=== PATIENT | male | born 1985 | race Caucasian/White ===

== ENCOUNTER 2017-12-15 20:47 | Emergency (ER) | payer OTHER ==
--- NOTE | 2017-12-15 20:58 | EDPHY ---
H & P Time Seen by Provider: 12/15/17 20:55 HPI/ROS: CHIEF COMPLAINT: Right ankle pain HISTORY OF PRESENT ILLNESS: Patient is a 32-year-old male presents emergency department after rolling his ankle while playing soccer. He states he inverted his foot. He now complains of pain over his lateral malleolus. His pain is worse with movement. He was able to ambulate but with discomfort. His pain is moderate. It does not radiate up his leg. He has no proximal tib-fib tenderness or pain. Patient has no previous ankle surgery injury. He did not sustain any other injury. REVIEW OF SYSTEMS: Negative Past Medical/Surgical History: Vitals noted General Appearance: Alert and no distress. Head: Pupils equal. Normal. Respiratory: No respiratory distress. Cardiac: regular rate and rhythm. Extremities: Patient has mild swelling over his right lateral malleolus. There is lateral malleolar tenderness to palpation. No crepitus. There is no metatarsal tenderness palpation. No medial ankle tenderness palpation. The patient has no proximal tib-fib tenderness.. Skin: No rashes or lesions. Neuro: Alert. Normal mood and affect. Constitutional: Initial Vital Signs Temperature (C) 37.0 C 12/15/17 20:57 Heart Rate 83 12/15/17 20:57 Respiratory Rate 16 12/15/17 20:57 Blood Pressure 195/120 H 12/15/17 20:57 O2 Sat (%) 96 12/15/17 20:57 O2 Delivery Mode Room Air Allergies/Adverse Reactions: No Known Allergies Allergy (Unverified 12/15/17 20:57) Home Medications: Medication Instructions Recorded NK [No Known Home Meds] 12/15/17 Medical Decision Making ED Course/Re-evaluation: In the emergency department I discussed possible etiologies with the patient. He is given ibuprofen orally. An x-ray of his right ankle was ordered. Right ankle x-ray: I reviewed the patient's images. No visible fracture dislocation. Please refer the dictated report Discussed the results with the patient. I answered all his questions. He was given a Derby boot. Patient states he has crutches at home and he did not want to be given crutches in the emergency department. Differential Diagnosis: My differential includes but is not limited to ankle sprain, muscle strain, fracture, dislocation - Data Points Medications Given: Discontinued Medications Ibuprofen (Motrin) 800 mg PO EDNOW ONE Stop: 12/15/17 21:01 Last Admin: 12/15/17 21:03 Dose: 800 mg Departure - Departure Clinical Impression: Right ankle pain Qualifiers: Chronicity: acute Qualified Code(s): M25.571 - Pain in right ankle and joints of right foot Ankle sprain Qualifiers: Encounter type: initial encounter Involved ligament of ankle: other ligament Laterality: right Qualified Code(s): S93.491A - Sprain of other ligament of right ankle, initial encounter Condition: Good Instructions: Ankle Sprain (ED) Additional Instructions: Wear your splint use crutches until you follow up with Orthopedics. Your x-ray did not show any fracture. Keep your ankle elevated and ice as much as possible for the next 48 hr. Referrals: Chastity Becerra MD [Medical Doctor] - 5-7 days, call for appt.
[2017-12-15 21:00] VITALS: RESP 16; TEMP 98.6
[2017-12-15] MEDS ORDERED: IBUPROFEN 800 MG TAB PO ONE (21:00)
[2017-12-15 21:42] VITALS: BP 162/95; PULSE 86; O2SAT 95
== END 2017-12-15 21:42 | disposition home or self-care (01) ==
LOC: CED 20:47
DX: S93.491A Sprain of other ligament of right ankle, initial encounter (principal); X50.9XXA Other and unspecified overexertion or strenuous movements or postures, initial encounter; Y99.8 Other external cause status; Y93.66 Activity, soccer
CPT/HCPCS: 73610-PO; L4386